=== PATIENT | female | born 1975 | race Hispanic/Latino ===

== ENCOUNTER 2017-08-07 06:53 | Day surgery (SDC) | payer OTHER, BC ==
[2017-08-07] MEDS ORDERED: Propofol 10 mg/ml Inj (20 ML) ONE (07:20)
[2017-08-07] MEDS ORDERED: Midazolam 2 MG/2 ML VIAL ONE ×2 (07:21→10:48)
[2017-08-07] MEDS ORDERED: Rocuronium 10 mg/ml (5 ml) ONE (07:22)
[2017-08-07] MEDS ORDERED: Succinylcholine 200 mg/10 ml Inj IV ONE (07:22)
[2017-08-07] MEDS ORDERED: ePHEDrine 50 mg/ml Inj ONE (07:22)
[2017-08-07] MEDS ORDERED: Lidocaine 4% (Laryng-O-Jet) Kit MM ONE (07:23)
[2017-08-07] MEDS ORDERED: Neostigmine Methylsulfate 2 MG/2 ML ML IV ONE (07:27)
[2017-08-07] MEDS ORDERED: Bupivacaine 0.5% Inj(30mL) ONE (07:29)
[2017-08-07] MEDS ORDERED: ceFAZolin IV 1 gm in Dextrose 2 GM/100 ML BAG IVPB ONE (07:29)
[2017-08-07 07:40] VITALS: BMI 26.1
[2017-08-07 08:14] VITALS: RESP 18
[2017-08-07 08:20] LABS: BASO # 0.1 K/uL (0.0-0.2); BASO % 0.8 % (0.0-2.0); EOS # 0.1 K/uL (0.0-0.7); EOS % 1.1 % (0.0-4.0); HEMOGLOBIN 14.6 g/dL (12.0-16.0); LYMPH # 1.9 K/uL (1.0-4.3); LYMPH % 22.1 % (20.0-40.0); MEAN CELL VOLUME 95.7 fl (81.0-99.0); MEAN CORPUSCULAR HEMOGLOBIN 31.4 pg (27.0-31.0); MEAN CORPUSCULAR HGB CONC 32.8 g/dL (33.0-37.0); MEAN PLATELET VOLUME 10.3 fl (7.2-11.7); MONO # 0.6 K/uL (0.0-0.8); MONO % 6.6 % (0.0-10.0); NEUT # 5.9 K/uL (1.8-7.0); NEUT % 69.4 % (50.0-75.0); NRBC % 0.1 % (0.0-0.0); RBC 4.65 Mil/uL (3.80-5.20); RED CELL DISTRIBUTION WIDTH 12.2 % (11.5-14.5); WHITE BLOOD COUNT 8.5 K/uL (4.8-10.8)
[2017-08-07] MEDS ORDERED: Lactated Ringer's 1,000 ML IV ONE ×2 (08:45→08:55)
[2017-08-07] MEDS ORDERED: Dexamethasone 4 mg/1 ml ONE (09:11)
[2017-08-07] MEDS ORDERED: Bupivacaine 0.5% Inj(30mL) IJ ONE (09:17)
[2017-08-07] MEDS ORDERED: Desflurane Inhalation Anesthetic Liq (240 ml) ONE (09:41)
[2017-08-07] MEDS ORDERED: HYDROmorphone 0.5 mg/0.5 ml ISec IVP PRN (10:09)
[2017-08-07] MEDS ORDERED: Lactated Ringer's 1,000 ML IV SCH (10:15)
[2017-08-07] MEDS ORDERED: DiphenhydrAMINE 50 mg/ml Inj ONE (10:39)
[2017-08-07] MEDS ORDERED: DiphenhydrAMINE 50 mg/ml Inj IVP ONE (10:40)
[2017-08-07] MEDS ORDERED: Midazolam 2 MG/2 ML VIAL IV ONE ×2 (10:45→11:00)
[2017-08-07] MEDS ORDERED: Albuterol 0.083% Inhal Sol (2.5 mg/3 mL) UD ONE (10:51)
[2017-08-07] MEDS ORDERED: DiphenhydrAMINE 50 mg/ml Inj IVP STA (11:00)
[2017-08-07] MEDS ORDERED: Albuterol HFA 90 mcg/actuation (8 g) INH PRN (11:01)
[2017-08-07] MEDS ORDERED: Albuterol 0.083% Inhal Sol (2.5 mg/3 mL) UD INH ONE (11:01)
[2017-08-07] MEDS ORDERED: Dexamethasone 2 MG in Sodium Chloride 0.9% 50 ML IV ONE (11:08)
--- NOTE | 2017-08-07 11:08 | CP.PCM.PN ---
Subjective - Date & Time of Evaluation Date of Evaluation: 08/07/17 Time of Evaluation: 11:02 - Subjective Subjective: Patient tolerated anesthesia. In recovery patient was having pain so ordered Dilaudid. 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 Patient reported difficulty breathing several minutes after receiving Dilaudid described as chest tightness. No cutaneous flushing or rash. Patient was given Benadryl 50 mg. Patient still reported having difficulty breathing ( sat always 100% and breath sounds heard throughout all lung auguste. After several minutes a slight expiratory wheeze could be heard so patient given Albuterol puffs x 2. Patient reported feeling a decrease in the difficulty breathing. Patient also given Albuterol nebulizer. Wheezing improved. An additional 2 mg Decadron was ordered for a total of 10 mg with 8 mg had been given during anesthesia. Objective - Vital Signs/Intake and Output Vital Signs (last 24 hours): Temp Pulse Resp BP Pulse Ox 96.7 F L 68 18 141/75 100 08/07/17 10:10 08/07/17 10:55 08/07/17 10:55 08/07/17 10:55 08/07/17 10:55 Intake and Output: 08/07/17 08/07/17 06:59 18:59 Intake Total 1100 Output Total 150 Balance 950 - Medications Medications: Current Medications Hydromorphone HCl (Dilaudid) 0.5 mg IVP Q10M PRN PRN Reason: Pain, moderate (4-7) Stop: 08/07/17 12:10 Lactated Ringer's (Lactated Ringer's) 1,000 mls @ 125 mls/hr IV .Q8H DRU - Labs Labs: 08/07/17 08:00
[2017-08-07] MEDS ORDERED: Dexamethasone 4 mg/1 ml IVP ONE (11:15)
[2017-08-07 13:56] VITALS: TEMP 98
[2017-08-07 17:13] VITALS: BP 116/70; PULSE 72; O2SAT 98
--- NOTE | 2017-08-21 09:59 | OP ---
PROCEDURE DATE: 07/29/2017 SURGEON: Jose Sanford MD CARE REP: Wiliam Bearden ANESTHESIOLOGIST: Jeni Mayes MD ANESTHETIC: General Endo PREOPERATIVE DIAGNOSES: PROVIDES POSTOPERATIVE DIAGNOSES: PROVIDES PROCEDURE PERFORMED: Davinci Laparoscopy for Endometriosis, Hysteroscopy, Cystoscopy, Bilateral Ureteral Stenting with Dye Injection. There is a procedure to be dictated separately by Dr. Suleiman Swain. COMPLICATIONS: None. SAMPLES: Sent to pathology. DRAINS: Olivera catheter. ESTIMATED BLOOD LOSS: Minimal. HISTORY: PROVIDES HISTORY DESCRIPTION OF PROCEDURE: After the consent was obtained, the patient was brought to the operating room and placed on the operating table in the dorsal supine position. An intravenous catheter was started; antibiotics were administered. After satisfactory anesthesia was induced, the patient was then positioned in dorsal lithotomy position, and every area prone to pressure was padded. The external genitalia in the abdomen was sterilely prepped and draped in the standard fashion and a time out was performed. At this point, the cystoscope was introduced in the bladder under direct vision, a maguire-cystoscopy was performed and attention was paid to both ureteral orifices, which were in a normal anatomical position. The left ureteral orifice was then catheterized with a Afghan open ending ureteral catheter. A solution of indocyanine green of 5 mL was injected into the left ureter and after the ureteral catheter was advanced into the distal ureter. The ureteral catheter was then removed. Attention was paid to the right ureteral orifice and at this point, a urethral catheter was advanced to the level of the right distal ureter. An additional 4 mL of indocyanine green were injected into the right ureter. The ureteral catheter was then removed. The bladder was then inspected and noted to be free of tumors, stones, or bleeding sources. The cystoscope was then removed and a 16 Afghan Olivera catheter was placed. At this point, attention was turned to the vaginal area, where a speculum was placed in the vagina. The anterior lip of the cervix was grasped. The uterus was dilated and the hysteroscope was inserted in the uterine cavity revealing a normal size cavity with both ureters also being visualized. At this point, the hysteroscope was removed, and a Valtchev uterine manipulator was placed in the uterus, and the attention was turned to the abdomen. An incision was made below the umbilicus with a standard open laparoscopy technique. The abdominal cavity was then entered in a blunt fashion. Under direct visualization, additional trocars were inserted, left upper quadrant, right upper quadrant, and mid quadrant. At this point, the da Nida robot was brought on to the field and it was docked. The findings were followed. There were multiple areas which were slightly erythematous suggestive of endometriosis, mostly in the posterior cervix and the right and the left pelvic side wall. There were adhesions between the sigmoid colon and the descending colon attaching the concerning colon to the left pelvic sidewall impeding the complete vision on the left pelvic side. Dr. Suleiman Swain from General Surgery was called in and he took down those adhesions. He will dictate this part separately. At this point, after we were able to see both sides, the ovaries were inspected and appearing to be normal and tubes were also inspected. Attention was on the left-hand side where the fluorescent technology was used to identify the ureter on the left-hand side. The peritoneum overlying the ureter was picked up, it was lifted utilizing a surgical grasper and the retroperitoneal space was entered. The ureter was gently dissected off and the area of peritoneum was sent to pathology, dissected in toto. Similarly, on the right-end side after examined the right ovarian tube, again, the right ureter was identified. The peritoneum overlying the right ureter was elevated. The retroperitoneal space was entered and the wide area of peritoneum was also excised with a partial pelvic sidewall peritonectomy being performed. At this point, we checked with fluorescence for both ureters, they are appeared to be in perfect condition. A peritoneum was also excised from the posterior cervical area. Area suspicious for superficial endometriosis was bipolar coagulated in the posterior cul-de- sac. At this point, it was checked for hemostasis, and appeared to be excellent. The pelvis was irrigated. The ureter appeared to be in excellent condition and intact and undamaged. The bowel was also in perfect condition. At this point, the robot was undocked, the abdomen was desufflated, the instruments were removed. The incisions were closed in layers with 0 PDS for the fascia. The skin was closed with 4-0 Monocryl and a surgical glue. All the instruments were removed from the vagina. The cervix was inspected and appeared to be in excellent condition. Atthis point, the patient was woken up and taken to the recovery room in excellent condition. MD DAKOTA De La Paz
== END 2017-08-07 17:00 | disposition home or self-care (01) ==
LOC: H.OPSURG 06:53
PROVIDERS: ATTEND Obstetrics & Gynecology Reproductive Endocrinology
DX: N80.0 Endometriosis of uterus (principal); M54.12 Radiculopathy, cervical region; N80.1 Endometriosis of ovary
CPT/HCPCS: 36415; 52332; 85025; 86850; 86900; 88305; 94640; C1729; J0330; J0690; J1100; J1170; J2001; J2405; J2704; J2710; J3010; J7030; J7040; J7120